=== PATIENT | male | born 1965 | race Caucasian/White ===

== ENCOUNTER → 2025-06-09 08:12 | Outpatient (REF) | payer OTHER, SELFPAY | LOC: HWRAD 08:12 | PROVIDERS: ATTENDING PHYSICIAN Internal Medicine Critical Care Medicine; FAMILY PHYSICIAN Physician Assistant Medical | DX: R91.1 Solitary pulmonary nodule (principal) | CPT/HCPCS: 71250 ==

== ENCOUNTER 2025-06-13 06:25 | Day surgery (SDC) | payer OTHER, SELFPAY ==
[2025-06-09 13:27] VITALS: BMI 31.0
[2025-06-09 14:23] LABS: INR 1.09; PT 13.9 Sec (11.4-14.6)
[2025-06-09 14:24] LABS: APTT 30.6 Sec (23.4-35.0)
[2025-06-13] VITALS (9 sets, daily range): BP systolic 119–140; BP diastolic 66–90; BMI 31.0
== END 2025-06-13 12:23 | disposition home or self-care (01) ==
LOC: SDS 06:25
PROVIDERS: ATTENDING PHYSICIAN Internal Medicine; FAMILY PHYSICIAN Physician Assistant Medical
DX: R59.0 Localized enlarged lymph nodes (principal); R91.1 Solitary pulmonary nodule
CPT/HCPCS: 31629; 31628; 31624; 31623; 31627; 31654; 36415; 71045; 76000; 85610; 85730; 87015; 87070; 87102; 87116; 87205; 88112; 88173; 88305; 88312; 88333; 94640; C1713; C1887